=== PATIENT | male | born 1950 | race Hispanic/Latino ===

== ENCOUNTER 2021-08-01 01:24 | Inpatient (IN) | payer OTHER, MEDICARE ==
[2021-08-01] VITALS (25 sets, daily range): BP systolic 89–149; BP diastolic 54–91
[~2021-08-01] VITALS: Ht 165.1 cm; Wt 102.4 kg
[2021-08-01] MEDS ORDERED: LEVO50TA11 (03:16)
[2021-08-01] MEDS ORDERED: ATOR20TA65 (03:16)
[2021-08-01] MEDS ORDERED: ASPI-1443 PO (03:16)
[2021-08-01] MEDS ORDERED: MIDO10TA PO (03:16)
[2021-08-01] MEDS ORDERED: ICOS1CAP2 PO (03:16)
[2021-08-01] MEDS ORDERED: BUSP7.5T7 PO (03:16)
[2021-08-01] MEDS ORDERED: ESOM20CA39 (03:16)
[2021-08-01] MEDS ORDERED: CLOP75TA32 (03:16)
[2021-08-01] MEDS ORDERED: CALC667C10 (03:16)
[2021-08-01] MEDS ORDERED: DICL100G31 (03:16)
[2021-08-01] MEDS ORDERED: CLAR-44 PO (03:16)
[2021-08-01] MEDS ORDERED: AMOX500C2 PO (03:16)
[2021-08-01] MEDS ORDERED: SERT-438 (03:16)
[2021-08-01] MEDS ORDERED: FOLI0.8T22 (03:16)
[2021-08-01] MEDS ORDERED: LIRA0.6P2 SQ (03:16)
[2021-08-01] MEDS ORDERED: ONDANSETRON 4MG INJ IV PRN (03:30)
[2021-08-01] MEDS ORDERED: ACETAMINOPHEN 325 MG TAB PO PRN (03:30)
[2021-08-01 05:51] LABS: BASOPHILS % (AUTO) 0.1 % (0.0-5.0); EOSINOPHILS % (AUTO) 0.1 % (0.0-8.0); HEMATOCRIT 25.9 % (42-54); LYMPHOCYTES % (AUTO) 4.9 % (21.0-51.0); MEAN CORPUSCULAR HEMOGLOBIN 33.5 pg (27.0-33.0); MEAN CORPUSCULAR HGB CONC 31.7 g/dL (32.0-36.0); MEAN CORPUSCULAR VOLUME 105.7 fL (79-99); MONOCYTES % (AUTO) 1.2 % (3.0-13.0); NEUTROPHILS % (AUTO) 91.8 % (40.0-77.0); PLATELET COUNT (AUTO) 162 K/uL (130-400); RED BLOOD CELL COUNT(AUTO) 2.45 MIL/uL (4.50-6.20); RED CELL DISTRIBUTION WIDTH 14.3 % (11.0-15.5); WHITE BLOOD COUNT (AUTO) 14.2 K/uL (4.8-10.8)
[2021-08-01 05:59] LABS: HEMOGLOBIN A1C 6.5 % (4.0-6.0)
[2021-08-01 06:02] LABS: INR 0.95 (0.85-1.15); PROTHROMBIN TIME 10.4 SEC (9.6-11.6)
[2021-08-01 06:04] LABS: PARTIAL THROMBOPLASTIN TIME 24.6 SEC (26.3-35.5)
[2021-08-01 06:08] LABS: ALBUMIN 4.1 g/dL (3.5-5.0); BILIRUBIN,TOTAL 0.4 mg/dL (0.2-1.0); MAGNESIUM 3.6 mg/dL (1.80-2.40); PHOSPHORUS 4.7 mg/dL (2.5-4.9)
[2021-08-01 06:12] LABS: CREATININE 18.6 mg/dL (0.5-1.5); POTASSIUM 8.1 mmol/L (3.5-5.1)
[2021-08-01] MEDS ORDERED: CALCIUM GLUC 1GM 1 GM in 0.9%NACL 100ML 100 ML IV SCH (07:00)
[2021-08-01] MEDS ORDERED: SODIUM ZIRCONIUM CYCLOSILICATE 5 GM POWD.PACK PO SCH (07:00)
[2021-08-01] MEDS: LEVOTHYROXINE 50 MCG TABLET PO SCH (07:30)
[2021-08-01] MEDS: INSULIN HUMULIN R 100 UNIT/ML 3ML SQ SCH ×4 (07:30→22:13)
[2021-08-01] MEDS: CALCIUM AC 667MG CAP PO SCH ×3 (07:30→18:52)
[2021-08-01] MEDS ORDERED: IOHEXOL-350 50ML VIAL IV ONE (08:03)
[2021-08-01] MEDS ORDERED: LIDOCAINE HCL 1% MDV 50ML VIAL ONE (08:03)
[2021-08-01] MEDS ORDERED: HEPARIN 1,000 UNIT VIAL ONE ×2 (08:04→09:16)
[2021-08-01] MEDS: ASPIRIN 81 MG EC TAB PO SCH (09:00)
[2021-08-01] MEDS: BUSPIRONE HCL 5 MG TABLET PO SCH ×2 (09:00→22:10)
[2021-08-01] MEDS: Vitamin B Complex/Vit C/Folic Acid PO SCH (09:00)
[2021-08-01] MEDS: FISH OIL 1000 MG/CAP PO SCH ×2 (09:00→22:10)
[2021-08-01] MEDS: SERTRALINE HCL 50 MG TABLET PO SCH (09:00)
[2021-08-01] MEDS: FAMOTIDINE 20MG VIAL IV SCH (09:00)
[2021-08-01] MEDS ORDERED: LIDOCAINE HCL 400MG/20ML VIAL ONE (09:16)
[2021-08-01 20:27] LABS: HEPATITIS B SURFACE ANTIGEN Non-Reactive (Negative)
[2021-08-01] MEDS: ATORVASTATIN 20 MG TABLET PO SCH (22:10)
[2021-08-02] VITALS (22 sets, daily range): BP systolic 90–122; BP diastolic 40–77
[2021-08-02] MEDS: MIDODRINE HCL 5 MG TABLET PO PRN ×2 (04:12→10:24)
[2021-08-02 05:54] LABS: INR 0.98 (0.85-1.15); PROTHROMBIN TIME 10.7 SEC (9.6-11.6)
[2021-08-02 05:55] LABS: PARTIAL THROMBOPLASTIN TIME 24.2 SEC (26.3-35.5)
[2021-08-02 06:00] LABS: HEMATOCRIT 25.5 % (42-54); MEAN CORPUSCULAR HEMOGLOBIN 32.8 pg (27.0-33.0); MEAN CORPUSCULAR HGB CONC 31.8 g/dL (32.0-36.0); MEAN CORPUSCULAR VOLUME 103.2 fL (79-99); PLATELET COUNT (AUTO) 157 K/uL (130-400); RED BLOOD CELL COUNT(AUTO) 2.47 MIL/uL (4.50-6.20); RED CELL DISTRIBUTION WIDTH 14.7 % (11.0-15.5); WHITE BLOOD COUNT (AUTO) 15.4 K/uL (4.8-10.8)
[2021-08-02 06:10] LABS: ALBUMIN 3.7 g/dL (3.5-5.0); BILIRUBIN,TOTAL 0.3 mg/dL (0.2-1.0); TOTAL PROTEIN, SERUM 7.2 g/dL (6.0-8.3)
[2021-08-02 06:12] LABS: CREATININE 12.4 mg/dL (0.5-1.5); POTASSIUM 6.2 mmol/L (3.5-5.1)
[2021-08-02] MEDS: INSULIN HUMULIN R 100 UNIT/ML 3ML SQ SCH ×4 (06:28→21:07)
[2021-08-02 06:30] LABS: LYMPHOCYTES % (MANUAL) 8 % (22-44); MAN.DIFF COMMENT-IMPRESSION MANUAL DIFFERENTIAL; MONOCYTES % (MANUAL) 5 % (2-9); PLATELET MORPHOLOGY COMMENT ADEQUATE; SEGMENTED NEUTROPHILS % 87 % (40-70)
[2021-08-02] MEDS: CALCIUM AC 667MG CAP PO SCH ×3 (07:36→17:52)
[2021-08-02] MEDS: LEVOTHYROXINE 50 MCG TABLET PO SCH (07:36)
[2021-08-02] MEDS: FISH OIL 1000 MG/CAP PO SCH ×2 (09:00→21:06)
[2021-08-02] MEDS: BUSPIRONE HCL 5 MG TABLET PO SCH ×2 (09:00→21:06)
[2021-08-02] MEDS: HEPARIN 5,000 UNIT VIAL IRRIG PRN (12:36)
[2021-08-02 14:15] LABS: CREATININE 6.7 mg/dL (0.5-1.5); POTASSIUM 4.5 mmol/L (3.5-5.1)
[2021-08-02] MEDS: ASPIRIN 81 MG EC TAB PO SCH (15:05)
[2021-08-02] MEDS: Vitamin B Complex/Vit C/Folic Acid PO SCH (15:05)
[2021-08-02] MEDS: SERTRALINE HCL 50 MG TABLET PO SCH (15:05)
[2021-08-02] MEDS: CEFTRIAXONE 1G VIAL IVP SCH (15:22)
[2021-08-02] MEDS: ATORVASTATIN 20 MG TABLET PO SCH (21:06)
[2021-08-03] VITALS: BP 113/75
[2021-08-03 04:00] VITALS: BP 113/58
[2021-08-03 06:33] LABS: ALBUMIN 3.4 g/dL (3.5-5.0); BILIRUBIN,TOTAL 0.3 mg/dL (0.2-1.0); POTASSIUM 5.3 mmol/L (3.5-5.1); TOTAL PROTEIN, SERUM 6.9 g/dL (6.0-8.3)
[2021-08-03 06:38] LABS: CREATININE 9.1 mg/dL (0.5-1.5)
[2021-08-03] MEDS: INSULIN HUMULIN R 100 UNIT/ML 3ML SQ SCH ×4 (06:40→20:22)
[2021-08-03] MEDS: CALCIUM AC 667MG CAP PO SCH ×3 (06:41→17:40)
[2021-08-03] MEDS: LEVOTHYROXINE 50 MCG TABLET PO SCH (06:41)
[2021-08-03 07:37] LABS: BASOPHILS % (AUTO) 0.1 % (0.0-5.0); EOSINOPHILS % (AUTO) 0.1 % (0.0-8.0); HEMATOCRIT 27.2 % (42-54); LYMPHOCYTES % (AUTO) 7.1 % (21.0-51.0); MEAN CORPUSCULAR HEMOGLOBIN 33.3 pg (27.0-33.0); MEAN CORPUSCULAR HGB CONC 32.7 g/dL (32.0-36.0); MEAN CORPUSCULAR VOLUME 101.9 fL (79-99); MONOCYTES % (AUTO) 6.1 % (3.0-13.0); NEUTROPHILS % (AUTO) 85.9 % (40.0-77.0); PLATELET COUNT (AUTO) 136 K/uL (130-400); RED BLOOD CELL COUNT(AUTO) 2.67 MIL/uL (4.50-6.20); RED CELL DISTRIBUTION WIDTH 14.4 % (11.0-15.5); WHITE BLOOD COUNT (AUTO) 11.7 K/uL (4.8-10.8)
[2021-08-03 08:00] VITALS: BP 128/70
[2021-08-03] MEDS: FISH OIL 1000 MG/CAP PO SCH ×2 (11:07→20:20)
[2021-08-03] MEDS: BUSPIRONE HCL 5 MG TABLET PO SCH ×2 (11:08→20:21)
[2021-08-03] MEDS: SERTRALINE HCL 50 MG TABLET PO SCH (11:08)
[2021-08-03] MEDS: Vitamin B Complex/Vit C/Folic Acid PO SCH (11:08)
[2021-08-03] MEDS: ASPIRIN 81 MG EC TAB PO SCH (11:10)
[2021-08-03] MEDS ORDERED: NA ZIRCON CYCLOSIL(LOKELMA 10GM) PO SCH (12:00)
[2021-08-03] MEDS ORDERED: EPOETIN ALFA-EPBX (ESRD) 10,000 UNIT/ML VIAL SQ SCH (12:00)
[2021-08-03] MEDS: FAMOTIDINE 20MG VIAL IV SCH (13:18)
[2021-08-03] MEDS: CEFTRIAXONE 1G VIAL IVP SCH (13:24)
[2021-08-03 16:00] VITALS: BP 122/69
[2021-08-03 20:00] VITALS: BP 125/79
[2021-08-03] MEDS: ATORVASTATIN 20 MG TABLET PO SCH (20:20)
[2021-08-04] VITALS: BP 125/72
[2021-08-04 04:00] VITALS: BP 138/75
[2021-08-04 05:06] LABS: BASOPHILS % (AUTO) 0.1 % (0.0-5.0); EOSINOPHILS % (AUTO) 1.3 % (0.0-8.0); HEMATOCRIT 27.3 % (42-54); LYMPHOCYTES % (AUTO) 12.4 % (21.0-51.0); MEAN CORPUSCULAR HEMOGLOBIN 32.6 pg (27.0-33.0); MEAN CORPUSCULAR HGB CONC 31.9 g/dL (32.0-36.0); MEAN CORPUSCULAR VOLUME 102.2 fL (79-99); MONOCYTES % (AUTO) 7.5 % (3.0-13.0); NEUTROPHILS % (AUTO) 78.1 % (40.0-77.0); PLATELET COUNT (AUTO) 124 K/uL (130-400); RED BLOOD CELL COUNT(AUTO) 2.67 MIL/uL (4.50-6.20); RED CELL DISTRIBUTION WIDTH 13.8 % (11.0-15.5); WHITE BLOOD COUNT (AUTO) 9.6 K/uL (4.8-10.8)
[2021-08-04 05:16] LABS: ALBUMIN 3.7 g/dL (3.5-5.0); BILIRUBIN,TOTAL 0.3 mg/dL (0.2-1.0); POTASSIUM 4.8 mmol/L (3.5-5.1)
[2021-08-04 05:18] LABS: CREATININE 10.9 mg/dL (0.5-1.5)
[2021-08-04] MEDS: INSULIN HUMULIN R 100 UNIT/ML 3ML SQ SCH ×4 (06:37→20:14)
[2021-08-04] MEDS: CALCIUM AC 667MG CAP PO SCH ×3 (06:41→17:45)
[2021-08-04] MEDS: LEVOTHYROXINE 50 MCG TABLET PO SCH (06:41)
[2021-08-04 08:00] VITALS: BP 129/75
[2021-08-04] MEDS: BUSPIRONE HCL 5 MG TABLET PO SCH ×2 (09:10→20:11)
[2021-08-04] MEDS: SERTRALINE HCL 50 MG TABLET PO SCH (09:10)
[2021-08-04] MEDS: ASPIRIN 81 MG EC TAB PO SCH (09:10)
[2021-08-04] MEDS: FISH OIL 1000 MG/CAP PO SCH ×2 (09:10→20:11)
[2021-08-04] MEDS: Vitamin B Complex/Vit C/Folic Acid PO SCH (09:10)
[2021-08-04 12:00] VITALS: BP 138/68
[2021-08-04] MEDS ORDERED: NA ZIRCON CYCLOSIL(LOKELMA 10GM) PO ONE (13:40)
[2021-08-04] MEDS: CEFTRIAXONE 1G VIAL IVP SCH (14:45)
[2021-08-04 16:00] VITALS: BP 125/74
[2021-08-04 20:00] VITALS: BP 137/68
[2021-08-04] MEDS: ATORVASTATIN 20 MG TABLET PO SCH (20:11)
[2021-08-05] VITALS (29 sets, daily range): BP systolic 96–150; BP diastolic 53–90
[2021-08-05 07:20] LABS: INR 0.96 (0.85-1.15); PARTIAL THROMBOPLASTIN TIME 26.8 SEC (26.3-35.5); PROTHROMBIN TIME 10.5 SEC (9.6-11.6)
[2021-08-05] MEDS: INSULIN HUMULIN R 100 UNIT/ML 3ML SQ SCH ×4 (07:30→20:55)
[2021-08-05] MEDS: LEVOTHYROXINE 50 MCG TABLET PO SCH (07:30)
[2021-08-05] MEDS: CALCIUM AC 667MG CAP PO SCH ×3 (08:00→17:47)
[2021-08-05] MEDS: ASPIRIN 81 MG EC TAB PO SCH (08:20)
[2021-08-05] MEDS: SERTRALINE HCL 50 MG TABLET PO SCH (08:21)
[2021-08-05] MEDS: FISH OIL 1000 MG/CAP PO SCH ×2 (08:21→20:55)
[2021-08-05] MEDS: BUSPIRONE HCL 5 MG TABLET PO SCH ×2 (08:21→20:55)
[2021-08-05] MEDS: Vitamin B Complex/Vit C/Folic Acid PO SCH (08:21)
[2021-08-05 08:33] LABS: BASOPHILS % (AUTO) 0.1 % (0.0-5.0); HEMATOCRIT 25.5 % (42-54); LYMPHOCYTES % (AUTO) 16.2 % (21.0-51.0); MEAN CORPUSCULAR HEMOGLOBIN 33.2 pg (27.0-33.0); MEAN CORPUSCULAR HGB CONC 33.3 g/dL (32.0-36.0); MEAN CORPUSCULAR VOLUME 99.6 fL (79-99); MONOCYTES % (AUTO) 7.9 % (3.0-13.0); NEUTROPHILS % (AUTO) 71.9 % (40.0-77.0); PLATELET COUNT (AUTO) 121 K/uL (130-400); RED BLOOD CELL COUNT(AUTO) 2.56 MIL/uL (4.50-6.20); RED CELL DISTRIBUTION WIDTH 13.5 % (11.0-15.5); WHITE BLOOD COUNT (AUTO) 7.6 K/uL (4.8-10.8)
[2021-08-05] MEDS: FAMOTIDINE 20MG VIAL IV SCH (08:47)
[2021-08-05] MEDS ORDERED: HEPARIN 10,000 UNIT/10ML (1,000 UNIT/ML) VIAL ONE (10:38)
[2021-08-05] MEDS ORDERED: LIDOCAINE HCL 1% MDV 50ML VIAL ONE (10:38)
[2021-08-05] MEDS ORDERED: IODIXANOL 320 MG/ML 100 ML VIAL ONE (10:41)
[2021-08-05] MEDS ORDERED: FENTANYL CITRATE PF 50 MCG/1 ML 2ML VIAL ONE (11:26)
[2021-08-05 11:46] LABS: ALBUMIN 3.4 g/dL (3.5-5.0); BILIRUBIN,TOTAL 0.3 mg/dL (0.2-1.0); POTASSIUM 5.1 mmol/L (3.5-5.1); TOTAL PROTEIN, SERUM 6.5 g/dL (6.0-8.3)
[2021-08-05 11:48] LABS: CREATININE 12.8 mg/dL (0.5-1.5)
[2021-08-05 12:07] LABS: PHOSPHORUS 10.4 mg/dL (2.5-4.9)
[2021-08-05] MEDS: CEFTRIAXONE 1G VIAL IVP SCH (12:53)
[2021-08-05] MEDS: HEPARIN 5,000 UNIT VIAL IRRIG PRN (17:06)
[2021-08-05] MEDS: ATORVASTATIN 20 MG TABLET PO SCH (20:55)
[2021-08-06] VITALS (9 sets, daily range): BP systolic 120–147; BP diastolic 70–88
[2021-08-06] MEDS: LEVOTHYROXINE 50 MCG TABLET PO SCH (05:32)
[2021-08-06] MEDS: INSULIN HUMULIN R 100 UNIT/ML 3ML SQ SCH ×2 (06:32→11:30)
[2021-08-06] MEDS: CALCIUM AC 667MG CAP PO SCH ×2 (08:00→11:48)
[2021-08-06] MEDS: ASPIRIN 81 MG EC TAB PO SCH (08:07)
[2021-08-06] MEDS: FISH OIL 1000 MG/CAP PO SCH (08:08)
[2021-08-06] MEDS: BUSPIRONE HCL 5 MG TABLET PO SCH (08:08)
[2021-08-06] MEDS: Vitamin B Complex/Vit C/Folic Acid PO SCH (08:08)
[2021-08-06] MEDS: SERTRALINE HCL 50 MG TABLET PO SCH (08:08)
[2021-08-06 09:04] LABS: HEMATOCRIT 25.7 % (42-54); MEAN CORPUSCULAR HEMOGLOBIN 33.1 pg (27.0-33.0); MEAN CORPUSCULAR HGB CONC 33.1 g/dL (32.0-36.0); RED BLOOD CELL COUNT(AUTO) 2.57 MIL/uL (4.50-6.20); RED CELL DISTRIBUTION WIDTH 13.8 % (11.0-15.5); WHITE BLOOD COUNT (AUTO) 7.4 K/uL (4.8-10.8)
[2021-08-06 09:19] LABS: POTASSIUM 4.7 mmol/L (3.5-5.1)
[2021-08-06 09:24] LABS: CREATININE 10.5 mg/dL (0.5-1.5)
[2021-08-06] MEDS ORDERED: HEPARIN 10,000 UNIT/10ML (1,000 UNIT/ML) VIAL ONE (09:25)
[2021-08-06] MEDS ORDERED: LIDOCAINE HCL 400MG/20ML VIAL ONE (09:25)
[2021-08-06] MEDS ORDERED: HEPARIN 1,000 UNIT VIAL ONE (09:26)
[2021-08-06] MEDS: CEFTRIAXONE 1G VIAL IVP SCH (11:48)
== END 2021-08-06 13:45 | disposition home or self-care (01) | DRG 252 ==
LOC: PREINTOOBSV 01:53 → OBSVTOIN 01:54 → 3AH 01:54
PROVIDERS: ADMIT Hospitalist; ATTEND Hospitalist
PROC: 02H633Z Insertion of Infusion Device into Right Atrium, Percutaneous Approach (ICD-10-PCS; 2021-08-01)
PROC: B548ZZA Ultrasonography of Superior Vena Cava, Guidance (ICD-10-PCS; 2021-08-01)
PROC: 5A1D70Z Performance of Urinary Filtration, Intermittent, Less than 6 Hours Per Day (ICD-10-PCS; 2021-08-01)
PROC: 5A1D70Z Performance of Urinary Filtration, Intermittent, Less than 6 Hours Per Day (ICD-10-PCS; 2021-08-02)
PROC: 057 Upper Veins, Dilation (ICD-10-PCS; principal; 2021-08-05)
PROC: B5181ZA Fluoroscopy of Superior Vena Cava using Low Osmolar Contrast, Guidance (ICD-10-PCS; 2021-08-05)
PROC: 3E03017 Introduction of Other Thrombolytic into Peripheral Vein, Open Approach (ICD-10-PCS; 2021-08-05)
PROC: 5A1D70Z Performance of Urinary Filtration, Intermittent, Less than 6 Hours Per Day (ICD-10-PCS; 2021-08-05)
PROC: 0JH63XZ Insertion of Tunneled Vascular Access Device into Chest Subcutaneous Tissue and Fascia, Percutaneous Approach (ICD-10-PCS; 2021-08-06)
PROC: 02HV33Z Insertion of Infusion Device into Superior Vena Cava, Percutaneous Approach (ICD-10-PCS; 2021-08-06)
PROC: B5181ZA Fluoroscopy of Superior Vena Cava using Low Osmolar Contrast, Guidance (ICD-10-PCS; 2021-08-06)
DX: T82.868A Thrombosis due to vascular prosthetic devices, implants and grafts, initial encounter (principal); N18.6 End stage renal disease; I12.0 Hypertensive chronic kidney disease with stage 5 chronic kidney disease or end stage renal disease; E87.5 Hyperkalemia; E11.22 Type 2 diabetes mellitus with diabetic chronic kidney disease; E11.65 Type 2 diabetes mellitus with hyperglycemia; E66.9 Obesity, unspecified; E78.5 Hyperlipidemia, unspecified; Z68.37 Body mass index [BMI] 37.0-37.9, adult; Z20.822 Contact with and (suspected) exposure to COVID-19; Z83.3 Family history of diabetes mellitus; E03.9 Hypothyroidism, unspecified; Z86.73 Personal history of transient ischemic attack (TIA), and cerebral infarction without residual deficits; Z99.2 Dependence on renal dialysis; Z87.891 Personal history of nicotine dependence; F20.9 Schizophrenia, unspecified; E87.70 Fluid overload, unspecified; D72.829 Elevated white blood cell count, unspecified; D64.9 Anemia, unspecified; Y83.2 Surgical operation with anastomosis, bypass or graft as the cause of abnormal reaction of the patient, or of later complication, without mention of misadventure at the time of the procedure; Y92.89 Other specified places as the place of occurrence of the external cause
CPT/HCPCS: 36415; 36556; 36581; 36905; 36907; 77001; 80048; 80053; 82948; 83036; 83735; 84100; 84132; 85025; 85027; 85610; 85730; 86704; 86706; 86850; 86900; 86901; 87040; 87340; 87635; 90935; 93005; C1725; C1750; C1752; C1757; C1769; C1894; G0378; J0696; J1644; J1815; J3010; J3490; Q9967